=== PATIENT | female | born 1930 | race Two or more races ===

== ENCOUNTER 2020-12-09 11:56 | Inpatient (IN) | payer MEDICAID ==
[~2020-12-09] VITALS: Ht 167.6 cm; Wt 79.0 kg
[2020-12-09] MEDS ORDERED: SODIUM CHLORIDE 0.9% 1,000 ML IVB ONE (12:45)
[2020-12-09 13:30] LABS: Basophils # (auto) 0.1 10 ^3/uL (0-0.2); Basophils % (auto) 0.7 % (0.0-2.0); Eosinophils # (auto) 0.1 10 ^3/uL (0-0.8); Eosinophils % (auto) 0.9 % (0.0-7.0); Hematocrit 33.4 % (36.0-46.0); Hemoglobin 11.4 g/dL (12.2-16.2); Lymphocytes # (auto) 1.9 10 ^3/uL (0.4-5.4); Mean Corpuscular Hemoglobin 30.2 pg (28.0-32.0); Mean Corpuscular Volume 88.8 fL (80.0-100.0); Monocytes # (auto) 0.6 10 ^3/uL (0-1.3); Monocytes % (auto) 7.8 % (0.0-12.0); Neutrophils # (auto) 5.5 10 ^3/uL (1.6-8.6); Neutrophils % (auto) 67.6 % (37.0-80.0); Platelet Count (auto) 302 10^3/uL (140-450); Red Blood Cells 3.76 10^6/uL (4.0-5.20); Red Cell Distribution Width 15.2 % (11.8-14.3); White Blood Cell 8.2 10^3/uL (4.4-10.8)
[2020-12-09] MEDS ORDERED: ONDANSETRON HCL 4 MG/2 ML VIAL IV ONE (13:30)
[2020-12-09] MEDS ORDERED: MORPHINE SULF INJ 2 MG/ML SYRINGE 1ML IV ONE (13:30)
[2020-12-09 13:46] LABS: INR 1.03 (0.9-1.15); Partial Thromboplastin Time 25.1 sec (23.0-31.2)
[2020-12-09 13:51] LABS: Anion Gap 6 (5-15); Blood Urea Nitrogen 13 mg/dL (7-18); Calcium 8.1 mg/dL (8.5-10.1); Carbon Dioxide 25 mmol/L (21-32); Chloride 109 mmol/L (98-107); Potassium 3.9 mmol/L (3.5-5.1); Sodium 140 mmol/L (136-145)
[2020-12-09 13:59] LABS: Alanine Aminotransferase 15 U/L (13-56); Alkaline Phosphatase 63 U/L (45-117); Aspartate Aminotransferase 14 U/L (15-37); Bilirubin, Total 0.7 mg/dL (0.2-1.0); GFR African American 149 mL/min; GFR Non-African American 123 mL/min; Glucose 132 mg/dL (74-106); Magnesium 2.6 mg/dL (1.6-2.6)
[2020-12-09] MEDS ORDERED: HYDROcodone-ACET 5/325MG TAB PO PRN (14:30)
[2020-12-09] MEDS ORDERED: ONDANSETRON HCL 4 MG/2 ML VIAL IV PRN (14:30)
[2020-12-09] MEDS ORDERED: MORPHINE SULF INJ 2 MG/ML SYRINGE 1ML IV PRN (14:30)
[2020-12-09] MEDS ORDERED: hydrALAZINE HCL 20 MG/ML VL IV PRN (14:30)
[2020-12-09] MEDS ORDERED: DOCUSATE SOD 100 MG CAP PO PRN (14:30)
[2020-12-09] MEDS ORDERED: NITROGLYCERIN 0.4 MG SL TAB SL PRN (14:30)
[2020-12-09 15:01] LABS: Cholesterol 106 mg/dL (< 200); HDL Cholesterol 45 mg/dL (40-59); LDL Cholesterol 54 mg/dL (< 100); Triglycerides 92 mg/dL (< 150)
[2020-12-09] MEDS: MORPHINE SULF INJ 2 MG/ML SYRINGE 1ML IV PRN ×2 (15:18→22:19)
[2020-12-09] MEDS ORDERED: SODIUM CHLORIDE 0.9% 1,000 ML IV ONE (16:30)
[2020-12-09 19:16] VITALS: BP 136/74
[2020-12-09] MEDS ORDERED: NITR0.4S29 SL (19:47)
[2020-12-09] MEDS ORDERED: ATOR80TA PO (19:51)
[2020-12-09] MEDS ORDERED: ASPI-543 PO (19:51)
[2020-12-09] MEDS ORDERED: ISOS60TA24 PO (19:51)
[2020-12-09] MEDS ORDERED: METO25TA36 PO (19:51)
[2020-12-09 21:36] VITALS: BP 147/78
[2020-12-10 04:50] VITALS: BP 132/82
[2020-12-10 05:15] LABS: Urine Bacteria NONE SEEN /hpf (None Seen); Urine Blood 3+ /uL (Negative); Urine Specific Gravity 1.023 (1.001-1.035); Urine WBC 17 /hpf (0 - 5)
[2020-12-10 08:00] VITALS: BP 144/58
[2020-12-10] MEDS: PANTOPRAZOLE 40 MG TAB PO SCH (08:38)
[2020-12-10 08:44] VITALS: BP 144/58
[2020-12-10] MEDS: MORPHINE SULF INJ 2 MG/ML SYRINGE 1ML IV PRN ×3 (08:59→18:49)
[2020-12-10 13:18] VITALS: BP 123/69
[2020-12-10 16:29] VITALS: BP 138/58
[2020-12-10 21:25] VITALS: BP 140/75
[2020-12-11] VITALS (13 sets, daily range): BP systolic 106–152; BP diastolic 52–89
[2020-12-11] MEDS: MORPHINE SULF INJ 2 MG/ML SYRINGE 1ML IV PRN (07:42)
[2020-12-11] MEDS: PANTOPRAZOLE 40 MG TAB PO SCH (07:47)
[2020-12-11] MEDS ORDERED: ceFAZolin 1GM/50ML 50 ML IV ONE (09:36)
[2020-12-11] MEDS ORDERED: TETRACAINE 1% INJ 2 ML VIAL IJ ONE (10:15)
[2020-12-11] MEDS ORDERED: CLINDAMYCIN 900MG IV 50 ML IV ONE (10:23)
[2020-12-11] MEDS ORDERED: PHENYLEPHRINE HCL 10 MG/ML VL IV ONE (10:41)
[2020-12-11] MEDS ORDERED: MORPHINE SULF(PF) 0.5MG/ML 10ML VIAL ONE (10:49)
[2020-12-11] MEDS ORDERED: fentaNYL CITRATE 100 MCG/2 ML VL ONE (10:49)
[2020-12-11] MEDS ORDERED: MIDAZOLAM HCL 1MG/1ML-2 ML VIAL ONE ×2 (10:57→11:32)
[2020-12-11] MEDS ORDERED: DexAMETHasone SOD PHOS 10MG/1ML VIAL INJ ONE (11:22)
[2020-12-11] MEDS ORDERED: PROPOFOL 10 MG/ML 20 ML IV ONE (11:22)
[2020-12-11] MEDS ORDERED: NALBUPHINE HCL 10 MG/1ml INJECTION SUBCUT ONE (11:30)
[2020-12-11] MEDS ORDERED: HYDROmorphone HCL 2 MG/ML VL IV PRN (11:30)
[2020-12-11] MEDS ORDERED: ePHEDrine SULFATE 50 MG/ML AMP IV PRN (11:30)
[2020-12-11] MEDS ORDERED: ONDANSETRON HCL 4 MG/2 ML VIAL IV PRN (11:30)
[2020-12-11] MEDS ORDERED: LABETALOL HCL 5 MG/ML 4ML SYRINGE IV PRN (11:30)
[2020-12-11] MEDS ORDERED: DexAMETHasone SOD PHOS 10MG/1ML VIAL INJ IV PRN (11:30)
[2020-12-11] MEDS ORDERED: diphenhdrAMINE HCL 50 MG/1 ML VL IV PRN (11:30)
[2020-12-11] MEDS ORDERED: NALOXONE HCL 0.4 MG/ML VIAL IV PRN (11:30)
[2020-12-11] MEDS ORDERED: HYDROcodone-ACET 10/325MG TAB PO PRN (13:15)
[2020-12-11] MEDS ORDERED: ACETAMINOPHEN 325 MG TAB PO PRN (13:15)
[2020-12-11] MEDS: SODIUM CHLOR 0.9% PF (SALINE LOCK) 10ML VIAL/SYR IV SCH ×2 (14:00→22:00)
[2020-12-11] MEDS: cefTRIAXone 1GM/50ML D5W 50 ML IV SCH (15:44)
[2020-12-11] MEDS: LACTATED RINGER'S 1,000 ML IV SCH ×2 (17:40→23:47)
[2020-12-12] VITALS (16 sets, daily range): BP systolic 95–165; BP diastolic 65–88
[2020-12-12] MEDS: SODIUM CHLOR 0.9% PF (SALINE LOCK) 10ML VIAL/SYR IV SCH ×3 (06:29→22:43)
[2020-12-12] MEDS: LACTATED RINGER'S 1,000 ML IV SCH ×2 (09:15→19:15)
[2020-12-12] MEDS ORDERED: NITROGLYCERIN 0.4 MG SL TAB SL PRN (09:45)
[2020-12-12] MEDS ORDERED: ENOXAPARIN SOD 40 MG/0.4 ML SYRINGE SC SCH (10:00)
[2020-12-12] MEDS: PANTOPRAZOLE 40 MG TAB PO SCH (10:03)
[2020-12-12] MEDS: cefTRIAXone 1GM/50ML D5W 50 ML IV SCH (10:03)
[2020-12-12 10:27] LABS: Basophils # (auto) 0 10 ^3/uL (0-0.2); Basophils % (auto) 0.3 % (0.0-2.0); Eosinophils # (auto) 0 10 ^3/uL (0-0.8); Hematocrit 28.4 % (36.0-46.0); Hemoglobin 9.4 g/dL (12.2-16.2); Lymphocytes # (auto) 0.7 10 ^3/uL (0.4-5.4); Lymphocytes % (auto) 4.7 % (10.0-50.0); Mean Corpuscular Hemoglobin 29.6 pg (28.0-32.0); Mean Corpuscular Volume 89.7 fL (80.0-100.0); Monocytes # (auto) 0.8 10 ^3/uL (0-1.3); Monocytes % (auto) 5.8 % (0.0-12.0); Neutrophils # (auto) 12.6 10 ^3/uL (1.6-8.6); Neutrophils % (auto) 89.2 % (37.0-80.0); Platelet Count (auto) 218 10^3/uL (140-450); Red Blood Cells 3.16 10^6/uL (4.0-5.20); Red Cell Distribution Width 15.2 % (11.8-14.3); White Blood Cell 14.2 10^3/uL (4.4-10.8)
[2020-12-12 10:44] LABS: Chloride 107 mmol/L (98-107); Potassium 3.8 mmol/L (3.5-5.1); Sodium 140 mmol/L (136-145)
[2020-12-12 10:53] LABS: Anion Gap 7 (5-15); BUN/Creatinine Ratio 25.3; Blood Urea Nitrogen 19 mg/dL (7-18); Carbon Dioxide 26 mmol/L (21-32); GFR African American 94 mL/min; GFR Non-African American 77 mL/min; Glucose 194 mg/dL (74-106)
[2020-12-12] MEDS ORDERED: ESCI-28 PO (14:03)
[2020-12-12] MEDS: MORPHINE SULF INJ 2 MG/ML SYRINGE 1ML IV PRN (14:08)
[2020-12-12] MEDS: ACETAMINOPHEN 500 MG TAB PO PRN (17:11)
[2020-12-13] VITALS (7 sets, daily range): BP systolic 130–140; BP diastolic 57–80
[2020-12-13] MEDS: LACTATED RINGER'S 1,000 ML IV SCH ×2 (05:06→15:15)
[2020-12-13] MEDS: SODIUM CHLOR 0.9% PF (SALINE LOCK) 10ML VIAL/SYR IV SCH ×3 (05:32→22:06)
[2020-12-13] MEDS: ACETAMINOPHEN 500 MG TAB PO PRN (05:32)
[2020-12-13 05:47] LABS: Hematocrit 22.9 % (36.0-46.0); Hemoglobin 7.9 g/dL (12.2-16.2)
[2020-12-13] MEDS: ENOXAPARIN SOD 40 MG/0.4 ML SYRINGE SC SCH (10:00)
[2020-12-13] MEDS: ISOSORBIDE MONONITRATE ER 60 MG TAB PO SCH (10:51)
[2020-12-13] MEDS: ASPirin-EC 81 mg tab PO SCH (10:51)
[2020-12-13] MEDS: PANTOPRAZOLE 40 MG TAB PO SCH (10:51)
[2020-12-13] MEDS: METOPROLOL SUCCINATE XL 50 MG TAB PO SCH (10:52)
[2020-12-13] MEDS: cefTRIAXone 1GM/50ML D5W 50 ML IV SCH (11:39)
[2020-12-13] MEDS: [UNRECOGNIZED DRUG - OTHER] PO SCH (22:06)
[2020-12-14] MEDS: LACTATED RINGER'S 1,000 ML IV SCH (01:15)
[2020-12-14] MEDS: ACETAMINOPHEN 500 MG TAB PO PRN ×2 (04:45→12:25)
[2020-12-14 04:49] VITALS: BP 96/39
[2020-12-14 05:21] LABS: Hematocrit 26.3 % (36.0-46.0); Hemoglobin 8.9 g/dL (12.2-16.2)
[2020-12-14] MEDS: SODIUM CHLOR 0.9% PF (SALINE LOCK) 10ML VIAL/SYR IV SCH ×3 (06:03→21:24)
[2020-12-14 08:00] VITALS: BP 147/63
[2020-12-14 09:00] VITALS: BP 147/63
[2020-12-14] MEDS: cefTRIAXone 1GM/50ML D5W 50 ML IV SCH (09:20)
[2020-12-14] MEDS: ASPirin-EC 81 mg tab PO SCH (09:20)
[2020-12-14] MEDS: PANTOPRAZOLE 40 MG TAB PO SCH (09:21)
[2020-12-14] MEDS: ISOSORBIDE MONONITRATE ER 60 MG TAB PO SCH (09:21)
[2020-12-14] MEDS: METOPROLOL SUCCINATE XL 50 MG TAB PO SCH (09:22)
[2020-12-14] MEDS: ENOXAPARIN SOD 40 MG/0.4 ML SYRINGE SC SCH (12:02)
[2020-12-14 13:52] VITALS: BP 125/68
[2020-12-14] MEDS: HYDROcodone-ACET 5/325MG TAB PO PRN (16:55)
[2020-12-14 17:00] VITALS: BP 133/57
[2020-12-14 18:00] VITALS: BP 124/64
[2020-12-14] MEDS: [UNRECOGNIZED DRUG - OTHER] PO SCH (21:24)
[2020-12-15 05:00] VITALS: BP 155/69
[2020-12-15] MEDS: SODIUM CHLOR 0.9% PF (SALINE LOCK) 10ML VIAL/SYR IV SCH ×3 (06:19→22:00)
[2020-12-15] MEDS: ACETAMINOPHEN 500 MG TAB PO PRN (06:19)
[2020-12-15 06:32] VITALS: BP 147/63
[2020-12-15 08:30] VITALS: BP 138/71
[2020-12-15] MEDS: HYDROcodone-ACET 5/325MG TAB PO PRN (09:35)
[2020-12-15] MEDS: ASPirin-EC 81 mg tab PO SCH (09:36)
[2020-12-15] MEDS: PANTOPRAZOLE 40 MG TAB PO SCH (09:36)
[2020-12-15] MEDS: cefTRIAXone 1GM/50ML D5W 50 ML IV SCH (09:37)
[2020-12-15] MEDS: ISOSORBIDE MONONITRATE ER 60 MG TAB PO SCH (09:37)
[2020-12-15] MEDS: ENOXAPARIN SOD 40 MG/0.4 ML SYRINGE SC SCH (09:39)
[2020-12-15] MEDS: METOPROLOL SUCCINATE XL 50 MG TAB PO SCH (09:49)
[2020-12-15 10:19] LABS: Hematocrit 27.4 % (36.0-46.0); Hemoglobin 9.3 g/dL (12.2-16.2)
[2020-12-15 12:30] VITALS: BP 98/45
[2020-12-15] MEDS: ENOXAPARIN SOD 30 MG/0.3 ML SYRINGE SC SCH (13:54)
[2020-12-15] MEDS ORDERED: PATIENTS OWN MEDICATION (EPOGEN 10,000 UNITS) SUBCUT ONE (15:45)
[2020-12-15] MEDS ORDERED: SODIUM FERR GLUC 62.5MG/5ML 125 MG in SODIUM CHL 0.9% 100 ML IV ONE (15:45)
[2020-12-15] MEDS ORDERED: EPOETIN ALFA-EPBX 10,000 UNIT/1ML VIAL SC ONE (16:00)
[2020-12-15 17:00] VITALS: BP 121/79
[2020-12-15] MEDS: [UNRECOGNIZED DRUG - OTHER] PO SCH (22:27)
[2020-12-16 05:00] VITALS: BP 122/61
[2020-12-16] MEDS: SODIUM CHLOR 0.9% PF (SALINE LOCK) 10ML VIAL/SYR IV SCH (06:00)
[2020-12-16 06:10] VITALS: BP 122/61
[2020-12-16] MEDS: cefTRIAXone 1GM/50ML D5W 50 ML IV SCH (09:00)
[2020-12-16] MEDS: ENOXAPARIN SOD 30 MG/0.3 ML SYRINGE SC SCH (09:25)
[2020-12-16] MEDS: ASPirin-EC 81 mg tab PO SCH (09:25)
[2020-12-16] MEDS: PANTOPRAZOLE 40 MG TAB PO SCH (09:26)
[2020-12-16] MEDS: METOPROLOL SUCCINATE XL 50 MG TAB PO SCH (09:26)
[2020-12-16] MEDS: ISOSORBIDE MONONITRATE ER 60 MG TAB PO SCH (09:27)
== END 2020-12-16 11:35 | DRG 308 ==
LOC: EDBD 11:56 → ER 11:56 → TELE 14:22 → TELE-WESTW 17:30
PROVIDERS: ADMIT Nurse Practitioner Acute Care; ATTEND Internal Medicine
PROC: 0QS734Z Reposition Left Upper Femur with Internal Fixation Device, Percutaneous Approach (ICD-10-PCS; principal; 2020-12-11 10:51)
PROC: 30233N1 Transfusion of Nonautologous Red Blood Cells into Peripheral Vein, Percutaneous Approach (ICD-10-PCS; 2020-12-13)
DX: M84.452A Pathological fracture, left femur, initial encounter for fracture (principal); E44.1 Mild protein-calorie malnutrition; D64.9 Anemia, unspecified; N39.0 Urinary tract infection, site not specified; W01.0XXA Fall on same level from slipping, tripping and stumbling without subsequent striking against object, initial encounter; Y93.9 Activity, unspecified; Y92.9 Unspecified place or not applicable; Y99.9 Unspecified external cause status; F41.9 Anxiety disorder, unspecified; M81.0 Age-related osteoporosis without current pathological fracture; I10 Essential (primary) hypertension; B96.20 Unspecified Escherichia coli [E. coli] as the cause of diseases classified elsewhere; Z20.822 Contact with and (suspected) exposure to COVID-19; Z68.28 Body mass index [BMI] 28.0-28.9, adult; Z88.0 Allergy status to penicillin; I05.0 Rheumatic mitral stenosis; I25.10 Atherosclerotic heart disease of native coronary artery without angina pectoris; J45.909 Unspecified asthma, uncomplicated
CPT/HCPCS: 36415; 70450; 71045; 72125; 72170; 72192; 73502; 76000; 80048; 80053; 80061; 81001; 83735; 84443; 84484; 85014; 85018; 85025; 85610; 85730; 86850; 86900; 86901; 86920; 87086; 87088; 87186; 87426; 93306; 96374; 96375; 97110; 97116; 97530; A4565; G0378; J0690; J0696; J1100; J2250; J2405; J2704; J3490

== ENCOUNTER 2020-12-24 16:20 | Emergency (ER) | payer MEDICAID ==
[~2020-12-24] VITALS: Ht 162.6 cm; Wt 77.1 kg
[~2020-12-24 16:20] MED LIST: ATOR80TA PO; ESCI-28 PO; ISOS60TA24 PO; METO25TA36 PO; NITR0.4S29 SL
[2020-12-24 18:25] LABS: Basophils # (auto) 0.1 10 ^3/uL (0-0.2); Eosinophils # (auto) 0.1 10 ^3/uL (0-0.8); Hemoglobin 9.5 g/dL (12.2-16.2)
[2020-12-24 18:26] LABS: Basophils % (auto) 0.8 % (0.0-2.0); Eosinophils % (auto) 0.8 % (0.0-7.0); Hematocrit 27.6 % (36.0-46.0); Lymphocytes # (auto) 1.7 10 ^3/uL (0.4-5.4); Lymphocytes % (auto) 16.2 % (10.0-50.0); Mean Corpuscular Hemoglobin 30.9 pg (28.0-32.0); Mean Corpuscular Hgb Conc. 34.5 g/dL (32.0-36.0); Mean Corpuscular Volume 89.5 fL (80.0-100.0); Monocytes # (auto) 0.9 10 ^3/uL (0-1.3); Monocytes % (auto) 8.2 % (0.0-12.0); Neutrophils # (auto) 7.8 10 ^3/uL (1.6-8.6); Platelet Count (auto) 550 10^3/uL (140-450); Red Blood Cells 3.09 10^6/uL (4.0-5.20); Red Cell Distribution Width 16.6 % (11.8-14.3); White Blood Cell 10.6 10^3/uL (4.4-10.8)
[2020-12-24 18:34] VITALS: BP 103/57
[2020-12-24 18:38] LABS: Albumin 2.5 g/dL (3.4-5.0); BUN/Creatinine Ratio 48.5; Calcium 8.2 mg/dL (8.5-10.1); Potassium 3.8 mmol/L (3.5-5.1)
[2020-12-24 18:41] LABS: Bilirubin, Total 1.5 mg/dL (0.2-1.0); Total Protein 5.9 g/dL (6.4-8.2)
[2020-12-24] MEDS ORDERED: ACETAMINOPHEN 325 MG TAB PO ONE (19:45)
== END 2020-12-24 20:20 ==
LOC: ER 16:20 → EDUNIT# 16:20 → EDBD 16:20 → ER 20:20
DX: K62.89 Other specified diseases of anus and rectum (principal); I10 Essential (primary) hypertension; K21.9 Gastro-esophageal reflux disease without esophagitis; J45.909 Unspecified asthma, uncomplicated; E78.5 Hyperlipidemia, unspecified; Z88.0 Allergy status to penicillin; Z79.899 Other long term (current) drug therapy
CPT/HCPCS: 36415; 74176; 80053; 83690; 85025; 93005